=== PATIENT | male | born 1990 | race American Indian/Alaskan Native ===

== ENCOUNTER 2021-10-08 12:19 | Emergency (ER) | payer SELFPAY ==
[2021-10-08] MEDS ORDERED: ONDANSETRON 4 MG/2 ML INJ ONE (12:41)
[2021-10-08] MEDS ORDERED: ONDANSETRON 4 MG/2 ML INJ IV ONE (12:47)
[2021-10-08] MEDS ORDERED: diphenhydrAMINE 50 MG/ML VIAL IV ONE (12:48)
[2021-10-08] MEDS ORDERED: METOCLOPRAMIDE 10 MG/2 ML INJ IV ONE (12:49)
[2021-10-08 13:44] LABS: Alanine Aminotransferase 33 units/L (7-56); Albumin 5.2 g/dL (3.9-5); BUN/Creatinine Ratio 11; Blood Urea Nitrogen 13 mg/dL (9-20); Calcium 10.6 mg/dL (8.4-10.2); Hemolysis Index 14
[2021-10-08 14:03] LABS: Hematocrit 42.8 % (35.5-45.6); Hemoglobin 14.1 gm/dl (11.8-15.2); Mean Corpuscular HGB Conc 33 % (32-34); Mean Corpuscular Volume 88 fl (84-94); Platelet Count 341 K/mm3 (140-440); Red Blood Count 4.89 M/mm3 (3.65-5.03); Red Cell Distribution Width 13.2 % (13.2-15.2)
[2021-10-08] MEDS ORDERED: PROCHLORPERAZINE EDISYLATE 10 MG/2 ML VIAL IV ONE (15:50)
[2021-10-08] MEDS ORDERED: SODIUM CHLORIDE 0.9% 1000 ML 1,000 ML IV ONE (15:51)
--- NOTE | 2021-10-08 16:41 | Emergency Department Report ---
ED Abdominal Pain HPI - General Chief Complaint: Nausea/Vomiting/Diarrhea Stated Complaint: VOMITTING Time Seen by Provider: 10/08/21 12:44 Source: patient Mode of arrival: Ambulatory Limitations: No Limitations - History of Present Illness Initial Comments: 31-year-old black male with no past medical history presents to the emergency department for evaluation of left-sided pain with nausea vomiting. He states that around 6:00 this morning he had sudden onset of severe left-sided pain with vomiting. He denies diarrhea, fever, dysuria, and penile discharge. He states that pain is somewhat worse with movement. MD Complaint: flank pain -: Sudden, hour(s) Location: L flank Radiation: LLQ Migration to: no migration Severity: severe Severity scale (0 -10): 8 Quality: cramping, aching Consistency: intermittent Associated Symptoms: nausea, vomiting. denies: diarrhea, fever, chills, dysuria, hematemesis, hematochezia, melena, hematuria, anorexia, syncope - Related Data Previous Rx's Medication Instructions Recorded Last Taken Type Acetaminophen/Codeine [Tylenol 1 tab PO Q6H PRN #12 tab 10/08/21 Unknown Rx /Codeine # 3 tab] Ketorolac [Toradol] 10 mg PO Q6H PRN #12 tab 10/08/21 Unknown Rx Ondansetron [Zofran Odt] 4 mg PO Q8HR PRN #12 tab.rapdis 10/08/21 Unknown Rx Tamsulosin [Flomax] 0.4 mg PO QPM #15 cap 10/08/21 Unknown Rx cephALEXin [Keflex] 500 mg PO Q12HR #14 cap 10/08/21 Unknown Rx Allergies Allergy/AdvReac Type Severity Reaction Status Date / Time No Known Allergies Allergy Verified 10/08/21 12:32 ED Review of Systems ROS: Stated complaint: VOMITTING Other details as noted in HPI Comment: All other systems reviewed and negative Constitutional: denies: chills, fever Respiratory: denies: cough, shortness of breath, SOB with exertion, SOB at rest, stridor, wheezing Cardiovascular: denies: chest pain, palpitations, dyspnea on exertion, orthopnea, edema, syncope, paroxysmal nocturnal dyspnea Gastrointestinal: nausea, vomiting, other (Left flank pain). denies: abdominal pain, diarrhea, hematemesis, melena, hematochezia Genitourinary: denies: urgency, dysuria, frequency, hematuria, discharge, testicular pain Musculoskeletal: back pain Skin: denies: rash, lesions Neurological: denies: headache, weakness ED Past Medical Hx - Past Medical History Previous Medical History?: No - Surgical History Past Surgical History?: No - Social History Smoking Status: Never Smoker Substance Use Type: None - Medications Home Medications: Home Medications Medication Instructions Recorded Confirmed Last Taken Type Acetaminophen/Codeine [Tylenol 1 tab PO Q6H PRN #12 tab 10/08/21 Unknown Rx /Codeine # 3 tab] Ketorolac [Toradol] 10 mg PO Q6H PRN #12 tab 10/08/21 Unknown Rx Ondansetron [Zofran Odt] 4 mg PO Q8HR PRN #12 tab.rapdis 10/08/21 Unknown Rx Tamsulosin [Flomax] 0.4 mg PO QPM #15 cap 10/08/21 Unknown Rx cephALEXin [Keflex] 500 mg PO Q12HR #14 cap 10/08/21 Unknown Rx ED Physical Exam - General Limitations: No Limitations General appearance: alert, in no apparent distress - Head Head exam: Present: atraumatic, normocephalic - Eye Eye exam: Present: normal appearance. Absent: conjunctival injection - Neck Neck exam: Present: normal inspection, full ROM. Absent: tenderness, lymphadenopathy - Respiratory Respiratory exam: Present: normal lung sounds bilaterally. Absent: respiratory distress, wheezes, rales, rhonchi, stridor, chest wall tenderness - Cardiovascular Cardiovascular Exam: Present: regular rate, normal heart sounds - GI/Abdominal GI/Abdominal exam: Present: soft, normal bowel sounds. Absent: distended, tenderness, guarding, rebound, rigid - Extremities Exam Extremities exam: Present: normal inspection, normal capillary refill. Absent: pedal edema, joint swelling, calf tenderness - Back Exam Back exam: Present: normal inspection, tenderness (Left lower), CVA tenderness (L). Absent: CVA tenderness (R), vertebral tenderness - Neurological Exam Neurological exam: Present: alert, oriented X3, normal gait - Psychiatric Psychiatric exam: Present: normal affect, normal mood - Skin Skin exam: Present: warm, dry, intact, normal color ED Course Vital Signs 10/08/21 10/08/21 13:48 17:36 Temperature 98.2 F 99.6 F Pulse Rate 73 73 Respiratory 20 18 Rate Blood Pressure 122/87 126/69 [Right] O2 Sat by Pulse 100 99 Oximetry ED Medical Decision Making - Lab Data Result diagrams: 10/08/21 13:04 10/08/21 13:16 - Radiology Data Radiology results: pending CT abdomen and pelvis: Official read stuck in que per landfill gas technician, which she was able to read impression with stated that patient had multiple kidney stones nonobstructing including 1 in the left UVJ. - Medical Decision Making 31-year-old black male with no past medical history presents to the emergency department for evaluation of left-sided pain with nausea vomiting. He states that around 6:00 this morning he had sudden onset of severe left-sided pain with vomiting. He denies diarrhea, fever, dysuria, and penile discharge. He states that pain is somewhat worse with movement. No gross abnormalities noted on exam and labs. CT positive for multiple kidney stones. Pain and nausea improved with medication. Patient will be discharged home with Toradol, Tylenol 3, Flomax, Keflex, and Zofran. He is advised to take medications as prescribed and follow-up with urology or primary care provider if no improvement or worsening symptoms. Ago but agreement with plan of care. Critical care attestation.: If time is entered above; I have spent that time in minutes in the direct care of this critically ill patient, excluding procedure time. ED Disposition Clinical Impression: Kidney stone on left side Disposition: 01 HOME / SELF CARE / HOMELESS Is pt being admited?: No Does the pt Need Aspirin: No Condition: Stable Instructions: Renal Colic, [id number], Kidney Stones, [id number], Dietary Guidelines to Help Prevent Kidney Stones Additional Instructions: Take medications as prescribed. Follow-up with urology for further evaluation and management. Return to the emergency department as needed. Prescriptions: Tamsulosin [Flomax] 0.4 mg PO QPM #15 cap cephALEXin [Keflex] 500 mg PO Q12HR #14 cap Ketorolac [Toradol] 10 mg PO Q6H PRN #12 tab PRN Reason: Pain Acetaminophen/Codeine [Tylenol /Codeine # 3 tab] 1 tab PO Q6H PRN #12 tab PRN Reason: Pain , Severe (7-10) Ondansetron [Zofran Odt] 4 mg PO Q8HR PRN #12 tab.rapdis PRN Reason: Nausea And Vomiting Referrals: [facility] [Provider Group] - 3-5 Days RUTHIE DAVE MD [Staff Physician] - 3-5 Days Forms: Work/School Release Form(ED) Time of Disposition: 16:40
[2021-10-08 17:37] VITALS: BP 126/69
--- NOTE | 2021-10-09 07:40 | Cat Scan Report ---
CT ABDOMEN AND PELVIS WITHOUT CONTRAST INDICATION / CLINICAL INFORMATION: Unspecified abdominal pain. TECHNIQUE: Axial CT images were obtained through the abdomen and pelvis without IV contrast. All CT scans at [facility] location are performed using CT dose reduction for ALARA by means of automated exposure control. COMPARISON: None available. FINDINGS: LOWER CHEST: No significant abnormality. LIVER: No significant abnormality. GALLBLADDER: No significant abnormality. BILE DUCTS: No significant abnormality. PANCREAS: No significant abnormality. SPLEEN: No significant abnormality. ADRENALS: No significant abnormality. RIGHT KIDNEY/URETER: There is a nonobstructive 1.5 mm right upper renal pole stone. No other signific ant abnormality. LEFT KIDNEY/URETER: There is a nonobstructive 1-2 mm lower pole stone. A mildly obstructive left UVJ stone measures 3.3 mm on image 126 of series 2. No other significant abnormality. STOMACH/SMALL BOWEL: No significant abnormality. COLON: No significant abnormality. APPENDIX: No significant abnormality. PERITONEUM: No free fluid. No free air. No fluid collection. LYMPH NODES: No significant adenopathy. VASCULATURE: No significant abnormality. URINARY BLADDER: No significant abnormality. REPRODUCTIVE ORGANS: No significant abnormality. ADDITIONAL FINDINGS: There is an uncomplicated small fat-containing left inguinal hernia. BONES: No significant abnormality IMPRESSION: 1. Mildly obstructive 3.3 mm left UVJ stone. 2. Nonobstructive bilateral renal stones measuring less than 2 mm. 3. No other acute findings in the abdomen or pelvis. Signer Name: Bud Morley MD Signed: 10/08/2021 2:41 PM Workstation Name: [id number]
== END 2021-10-08 17:37 | disposition home or self-care (01) ==
LOC: ED 12:19
DX: N20.0 Calculus of kidney (principal)
CPT/HCPCS: 36415; 74176; 80053; 82962; 83690; 85027; 96361; 96374; 96375; 99284; J0780; J1200; J2405; J2765; J7030